=== PATIENT | male | born 1960 | race Caucasian/White ===

== ENCOUNTER 2024-03-18 17:10 | Emergency (ER) | payer OTHER, SELFPAY ==
[2024-03-18 17:25] VITALS: BP 147/87
[2024-03-18] MEDS: ADACEL 0.5 ML IM (17:58)
--- NOTE | 2024-03-18 19:18 | ED.SKININJ ---
HPI-Injury
General
Chief Complaint: Skin Surface Trauma
Source: patient
Exam Limitations: none
Time Seen by Provider: 03/18/24 18:37
Nursing documentation reviewed up to this point in time: agreed with
History of Present Illness-Injury
Is this injury a work related problem?: No
Is pt an associate of [facility]?: No
Initial Injury comments:
Patient states he accidentally cut his finger on metal on his refrigerator. Sustained lact to left dorsal index finger. He was seen by and sent to ED to r/o tendon injury. Full ROM, sensation to left index finger. Brought self to ED for eval
Past History
Past History
ED Past Medical History: GERD, HTN and Hypercholesterolemia
ED Past Surgical History: Orthopedic (Knee arthroscopy)
Social History
Tobacco: Non-smoker
Alcohol: Occasional
Personal:
Living: with family
Employment: Employed
Family History
Family History: Other (Noncontributory)
Review of Systems
Review of Systems
Allergies reviewed?: Yes
All Other Systems: ROS reviewed and negative except as documented in HPI and ROS
Constitutional: Reports no symptoms
Musculoskeletal: Reports no symptoms
Skin: Reports other (laceration to dorsum of left index finger)
Neurological: Reports no symptoms
Psychiatric: Reports no symptoms
Skin Exam
Laceration
Left Dorsal Second Finger:
Length in cm: 2
Orientation: vertical
Type of Laceration: simple
Any active bleeding?: no active bleeding
Distal skin color and temperature: normal-warm & good color
Normal distal neurovascular exam: Yes
Range of motion: full
Phy Exam
General Physical Exam
General Presentation: well appearing and no apparent distress
General age: appears stated age
General Skin: warm and dry
General Habitus: normal
Musculoskeletal Exam
Musculoskeletal Exam: full ROM, neuro vasc intact and other (Full ROM to left index finger. No tendon injury. Equal strength and sensation bilaterally. )
Skin Exam
Skin Exam: normal color, warm/dry and no rash
Psychiatric Exam
Psychiatric Exam: normal mood/affect
Course
Orders/Labs/Results
Orders:
Orders
03/18/24 17:33
Tetanus/Diphth/Acelpertussis [Adacel] 0.5 ml IM .ONCE ONE
03/18/24 19:18
Aluminium Finger Splint Left ONCE
Vital Signs
Initial and Last Documented VS:
Initial Vital Signs
Temp Pulse Resp BP Pulse Ox
98.4 F 79 18 147/87 98
03/18/24 17:25 03/18/24 17:25 03/18/24 17:25 03/18/24 17:25 03/18/24 17:25
Last Documented Vital Signs
Temp Pulse Resp BP Pulse Ox
98.4 F 79 18 147/87 98
03/18/24 17:25 03/18/24 17:25 03/18/24 17:25 03/18/24 17:25 03/18/24 17:25
Procedures
Laceration Closure
Left Dorsal Second Finger:
Status of Wound: clean
Description of Wound Edges: sharp
Preparation: cleaned with saline
Revision/Debridement: routine- no revision
Wound exploration: explored to base- no FB and no tendon involvement
Type of Closure: Dermabond-skin glue
*Critical Care Note
Total Time (30-74mins, 75-104mins- exclusive of procedures): Not Applicable
ED Attending Note
-
Portions of this chart may have been created with voice recognition software.� Occasional wrong word or��sound alike� substitutions may have occurred due to the inherent limitations of voice recognition software.
Discharge Plan
Departure
Patient Disposition: Home (Routine Discharge)
Date of Disposition: 03/18/24
Time of Disposition: 19:20
Patient with high blood pressure during this ER visit?: No
Condition: Good
Covid-19: Not Applicable
Discharge Problem:
Finger laceration
Instructions: Laceration Repair With Glue (DC)
Prescriptions:
No Action
chlorthalidone 25 MG tablet
25 mg PO DAILY
amlodipine 10 MG tablet
10 mg PO DAILY
aspirin 81 MG tablet,chewable
81 mg PO DAILY
losartan 100 MG tablet
100 mg PO DAILY
spironolactone 50 MG tablet
50 mg PO DAILY
escitalopram oxalate 20 MG tablet
20 mg PO DAILY
metoprolol succinate 100 MG tablet extended release 24 hr
50 mg PO DAILY
[id number]-ast [krill oil] 1 EACH capsule
1 ea PO DAILY
oxycodone-acetaminophen 5 MG/325 MG tablet
1 tab PO Q4HPRN PRN (Reason: moderate to severe pain) Qty: 8 0RF
prednisone 10 MG tablet
10 mg PO DAILY Qty: 45 0RF
Rx Instructions:
5 tabs for 3 days, 4 tabs for 3 days, 3 tabs for 3 days, 2 tabs for 3 days, 1 tab for 3 days
Referrals:
Alvarez Rivers DO [Family Provider] -
Activity Restrictions/Additional Instructions:
Keep finger dry for 24 hours. Do not remove tape strips. Wear finger splint (do not bend index finger) for 1 week.
Interventions
Interventions:
*Risk Screen - Suicide Last Done: 03/18/24 17:25
*Neglect/Abuse Screening Last Done: 03/18/24 17:25
*ED COVID-19 Vaccine History Last Done: 03/18/24 17:25
ED-Skin Assessment Last Done: 03/18/24 18:17
Discharge Date and Time
Print Language: LAO
== END 2024-03-18 20:06 | disposition home or self-care (01) ==
LOC: EMR 17:10
PROVIDERS: EMERGENCY PHYSICIAN Student in an Organized Health Care Education/Training Program; FAMILY PHYSICIAN Family Medicine
DX: S61.211A Laceration without foreign body of left index finger without damage to nail, initial encounter (principal); W45.8XXA Other foreign body or object entering through skin, initial encounter; Z23 Encounter for immunization; K21.9 Gastro-esophageal reflux disease without esophagitis; I10 Essential (primary) hypertension; E78.00 Pure hypercholesterolemia, unspecified
CPT/HCPCS: 99282; 12001; 90471; 90715

== ENCOUNTER 2024-09-03 07:06 | Emergency (ER) | payer OTHER, SELFPAY ==
[2024-09-03 07:09] VITALS: BP 151/93
--- NOTE | 2024-09-03 07:52 | ED.GENMED ---
History of Present Illness
General
Chief Complaint: Musculo-Skeletal Complaint
Source: patient
Exam Limitations: none
Time Seen by Provider: 09/03/24 07:30
History of Present Illness
History of Present Illness:
63yo [id number] male with a history of hypertension, hyperlipidemia, obesity presenting for evaluation of left shoulder pain. Patient has been having issues with his left shoulder over the past several years. Symptoms usually improve
gradually. His current symptoms started a few days ago. He reports pain in his anterior left shoulder, decreased range of motion, and feeling like the shoulder is 'locking up.' He denies any specific trauma. He has worked in construction for
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 He is requesting an MRI of his shoulder. He denies any paresthesias, chest pain, shortness of breath.
Past History
Past History
ED Past Medical History: GERD, HTN and Hypercholesterolemia
ED Past Surgical History: Orthopedic (Knee arthroscopy)
Social History
Tobacco: Non-smoker
Alcohol: Occasional
Personal:
Living: with family
Employment: Employed
Family History
Family History: Other (Noncontributory)
Phy Exam
General Physical Exam
General Presentation: well appearing and no apparent distress
General Skin: warm and dry
General Habitus: normal
General Mental: alert
ENT Exam
ENT Exam: normocephalic
Neurological Exam
Neurological Exam: alert
Jona Coma Scale
Eye Opening: Spontaneous
Verbal Response: Oriented
Motor Response: Obeys Commands
GCS Total Score: 15
Musculoskeletal Exam
Musculoskeletal Exam: other (L shoulder: Normal to inspection. +Tenderness to anterior shoulder. Able to abduct to 90 degrees with effort but this elicits pain. 2+ radial pulse and sensation intact.)
Skin Exam
Skin Exam: normal color and warm/dry
Psychiatric Exam
Psychiatric Exam: normal mood/affect
Course
Orders/Labs/Results
Orders:
Orders
09/03/24 07:16
Shoulder, Left 2 View CR [CR Shoulder - Left Min 2 View*] Urgent
Comment:
Reason For Exam: pain after pulling door all day
Vital Signs
Initial and Last Documented VS:
Initial Vital Signs
Temp Pulse Resp BP Pulse Ox
97.9 F 96 18 151/93 96
09/03/24 07:09 09/03/24 07:09 09/03/24 07:09 09/03/24 07:09 09/03/24 07:09
Last Documented Vital Signs
Temp Pulse Resp BP Pulse Ox
97.9 F 96 18 151/93 96
09/03/24 07:09 09/03/24 07:09 09/03/24 07:09 09/03/24 07:09 09/03/24 07:53
MDM/Problems Addressed
Differential Diagnosis Includes:
63yoM here with acute on chronic L shoulder pain. Reports overusing it but denies any specific pain. Denies CP/SOB. There is reproducible pain on exam as well as painful ROM. LUE is neurovascularly intact. Differential diagnosis includes: rotator
cuff pathology, calcific tendonitis, osteoarthritis, doubt fracture
X-rays obtained which do not show any significant arthritis or calcium deposits. He is requesting an MRI but discussed that we are unable to complete this in the emergency room setting. He declines analgesics. He was advised to f/u with orthopedics
for further care.
*Pulse Oximetry
SaO2: 96
Oxygen Mode of Delivery: Room air
Patient hypoxic: no (96%)
*Critical Care Note
Total Time (30-74mins, 75-104mins- exclusive of procedures): Not Applicable
ED Attending Note
-
Portions of this chart may have been created with voice recognition software.� Occasional wrong word or��sound alike� substitutions may have occurred due to the inherent limitations of voice recognition software.
Discharge Plan
Departure
Patient Disposition: Home (Routine Discharge)
Date of Disposition: 09/03/24
Time of Disposition: 07:49
Patient with high blood pressure during this ER visit?: Yes
Discharge Problem:
Left shoulder pain
Instructions: Shoulder pain - ED discharge instructions
Prescriptions:
No Action
chlorthalidone 25 MG tablet
25 mg PO DAILY
amlodipine 10 MG tablet
10 mg PO DAILY
aspirin 81 MG tablet,chewable
81 mg PO DAILY
losartan 100 MG tablet
100 mg PO DAILY
spironolactone 50 MG tablet
50 mg PO DAILY
escitalopram oxalate 20 MG tablet
20 mg PO DAILY
metoprolol succinate 100 MG tablet extended release 24 hr
50 mg PO DAILY
[id number]-qa-[id number]-hoy-bgm-wjgzqtm-ast [krill oil] 1 EACH capsule
1 ea PO DAILY
oxycodone-acetaminophen 5 MG/325 MG tablet
1 tab PO Q4HPRN PRN (Reason: moderate to severe pain) Qty: 8 0RF
prednisone 10 MG tablet
10 mg PO DAILY Qty: 45 0RF
Rx Instructions:
5 tabs for 3 days, 4 tabs for 3 days, 3 tabs for 3 days, 2 tabs for 3 days, 1 tab for 3 days
Referrals:
Dipak Farley MD [Family Provider, Family Practice]
Jaime Hemphill MD [Active, Orthopedics]
Activity Restrictions/Additional Instructions:
Take ibuprofen 600mg every 6 hours as needed for pain.
Please call today to schedule a follow-up appointment with orthopedics.
Interventions
Interventions:
*Risk Screen - Suicide Last Done: 09/03/24 07:51
*General Assessment Last Done: 09/03/24 07:09
*Neglect/Abuse Screening Last Done: 09/03/24 07:51
*ED- Fall Risk Assessment Last Done: 09/03/24 07:09
*ED COVID-19 Vaccine History Last Done: 09/03/24 07:09
ED-Musculoskeletal Assessment Last Done: 09/03/24 07:50
Discharge Date and Time
Print Language: CHINESE
== END 2024-09-03 08:02 | disposition home or self-care (01) ==
LOC: EMR 07:06
PROVIDERS: EMERGENCY PHYSICIAN Emergency Medicine; FAMILY PHYSICIAN Family Medicine
DX: M25.512 Pain in left shoulder (principal); I10 Essential (primary) hypertension; E78.00 Pure hypercholesterolemia, unspecified; E66.9 Obesity, unspecified
CPT/HCPCS: 99283; 73030